=== PATIENT | male | born 1980 | race Caucasian/White ===

== ENCOUNTER 2020-05-02 02:25 | Emergency (ER) | payer BC ==
[~2020-05-02] VITALS: Ht 172.7 cm; Wt 93.1 kg
[2020-05-02 02:55] LABS: BASO # 0.1 x10^3/uL (0.0-0.2); BASO % 1 % (0-3); EOS # 0.1 x10^3/uL (0.0-0.7); EOS % 1 % (0-3); HEMATOCRIT 46.2 % (39.0-53.0); HEMOGLOBIN 15.5 g/dL (13.0-17.5); LYMPH # 2.4 x10^3/uL (1.0-4.8); LYMPH % 19 % (24-48); MEAN CORPUSCULAR HEMOGLOBIN 30 pg (25-35); MEAN CORPUSCULAR HGB CONC 34 g/dL (31-37); MEAN CORPUSCULAR VOLUME 89 fL (79-100); MONO % 8 % (0-9); NEUT # 9.2 x10^3uL (1.8-7.7); NEUT % 71 % (31-73); PLATELET COUNT 237 x10^3/uL (140-400); RED CELL DISTRIBUTION WIDTH 13.8 % (11.5-14.5); WHITE BLOOD COUNT 12.9 x10^3/uL (4.0-11.0)
[2020-05-02] MEDS ORDERED: ONDANSETRON PF 4 MG/2 ML VIAL. IVP ONE (03:00)
[2020-05-02] MEDS ORDERED: MORPHINE SULFATE 4 MG/ML DISP.SYRIN. IV ONE (03:00)
[2020-05-02 03:02] LABS: BACTERIA,URINE 0 /HPF (0-FEW); BILIRUBIN,URINE NEG (NEG); CLARITY,URINE CLEAR; COLOR,URINE YELLOW; GLUCOSE,URINE NEG (NEG); NITRITE,URINE NEG (NEG); RBC,URINE 0 /HPF (0-2); SQUAMOUS EPITHELIAL CELL,UR OCC /LPF; UROBILINOGEN,URINE 0.2 mg/dL (0.2 mg/dL); WBC,URINE OCC /HPF (0-4)
--- NOTE | 2020-05-02 03:02 | PHYS DOC ---
Past History Past Medical History: Kidney Stones Past Surgical History: No Surgical History Additional Smoking Information: vape Alcohol Use: Rarely General Adult EDM: Chief Complaint: ABDOMINAL PAIN HPI: HPI: 39-year-old male who awoken from his sleep around midnight with right lower quadrant abdominal pain. The patient was feeling fine most the day yesterday. When he went to bed he had no medication he was sick. The pain is deep and cramping. It is moderate in intensity. Patient had 2 normal bowel movements yesterday. He has not had any nausea or vomiting. Denies fever or chills. He does have history of kidney stones but states this only hurts in the front and so it feels different. No history of abdominal surgery. Review of Systems: Review of Systems: Constitutional: Denies fever or chills Eyes: Denies change in visual acuity HENT: Denies nasal congestion or sore throat Respiratory: Denies cough or shortness of breath Cardiovascular: Denies chest pain or edema GI: Right lower quadrant abdominal pain. denies nausea, vomiting, bloody stools or diarrhea : Denies dysuria Musculoskeletal: Denies back pain or joint pain Integument: Denies rash Neurologic: Denies headache, focal weakness or sensory changes Endocrine: Denies polyuria or polydipsia Lymphatic: Denies swollen glands Psychiatric: Denies depression or anxiety Heart Score: Risk Factors: Risk Factors: DM, Current or recent (<one month) smoker, HTN, HLP, family history of CAD, obesity. Risk Scores: Score 0 - 3: 2.5% MACE over next 6 weeks - Discharge Home Score 4 - 6: 20.3% MACE over next 6 weeks - Admit for Clinical Observation Score 7 - 10: 72.7% MACE over next 6 weeks - Early Invasive Strategies Allergies: Allergies: Allergies Coded Allergies Type Severity Reaction Last Updated Verified No Known Drug Allergies 05/02/20 No Physical Exam: PE: Constitutional: Well developed, well nourished, obese, no acute distress, non- toxic appearance. [] HENT: Normocephalic, atraumatic, bilateral external ears normal, oropharynx moist, no oral exudates, nose normal. [] Eyes: PERRLA, EOMI, conjunctiva normal, no discharge. [] Neck: Normal range of motion, no tenderness, supple, no stridor. [] Cardiovascular:Heart rate regular rhythm, no murmur [] Lungs & Thorax: Bilateral breath sounds clear to auscultation [] Abdomen: Bowel sounds normal, soft, RLQ tenderness with guarding, no masses, no pulsatile masses. [] Skin: Warm, dry, no erythema, no rash. [] Back: No tenderness, no CVA tenderness. [] Extremities: No tenderness, no cyanosis, no clubbing, ROM intact, no edema. [] Neurologic: Alert and oriented X 3, normal motor function, normal sensory function, no focal deficits noted. [] Psychologic: Affect normal, judgement normal, mood normal. [] Current Patient Data: Labs: Laboratory Tests Test 05/02/20 02:40 White Blood Count 12.9 x10^3/uL (4.0-11.0) H Red Blood Count 5.20 x10^6/uL (4.30-5.70) Hemoglobin 15.5 g/dL (13.0-17.5) Hematocrit 46.2 % (39.0-53.0) Mean Corpuscular Volume 89 fL (79-100) Mean Corpuscular Hemoglobin 30 pg (25-35) Mean Corpuscular Hemoglobin Concent 34 g/dL (31-37) Red Cell Distribution Width 13.8 % (11.5-14.5) Platelet Count 237 x10^3/uL (140-400) Neutrophils (%) (Auto) 71 % (31-73) Lymphocytes (%) (Auto) 19 % (24-48) L Monocytes (%) (Auto) 8 % (0-9) Eosinophils (%) (Auto) 1 % (0-3) Basophils (%) (Auto) 1 % (0-3) Neutrophils # (Auto) 9.2 x10^3uL (1.8-7.7) H Lymphocytes # (Auto) 2.4 x10^3/uL (1.0-4.8) Monocytes # (Auto) 1.0 x10^3/uL (0.0-1.1) Eosinophils # (Auto) 0.1 x10^3/uL (0.0-0.7) Basophils # (Auto) 0.1 x10^3/uL (0.0-0.2) Vital Signs: Vital Signs Date Time Temp Pulse Resp B/P (MAP) Pulse Ox O2 Delivery O2 Flow Rate FiO2 05/02/20 02:25 98.0 85 18 158/119 (132) 98 Room Air EKG: EKG: [] Radiology/Procedures: Radiology/Procedures: [] Impressions: INDICATION: Reason: OMNI 300,75ML IV.RLQ abdominal pain.No sx or injury / Spl. Instructions: / History: COMPARISON: None. TECHNIQUE: Axial CT images obtained through the abdomen and pelvis with contrast. One or more of the following individualized dose reduction techniques were utilized for this examination: 1. Automated exposure control; 2. Adjustment of the mA and/or kV according to patient size; 3. Use of iterative reconstruction technique. FINDINGS: Abdominal aorta is not aneurysmal. No intrahepatic bile duct dilation. The liver is low density which can be seen with fatty infiltration. No peripancreatic fluid collection. Spleen unremarkable. Nonobstructive right renal stone without hydronephrosis. Urinary bladder is partially distended. Wall of the urinary bladder is mildly prominent but the latter is not very distended. The appendix measures approximately 8 mm with adjacent inflammatory changes and mucosal hyperenhancement. There is a couple of mildly prominent small bowel loops in a nonspecific pattern. Degenerative changes the spine. Mild scoliotic curvature the spine. IMPRESSION: * The appendix is mildly dilated with adjacent edema to the fat concerning for acute appendicitis. * Nonobstructive right renal stone. * The urinary bladder wall is mildly prominent but not very distended therefore portion of this could be secondary to lack of distention Electronically signed by: Apollo Bennett MD (05/02/2020 4:13 AM) [id number] DICTATED AND SIGNED BY: APOLLO BENNETT MD DATE: 05/02/20 0413 CC: JOEL MEDEROS DO; PCP,UNKNOWN ~ Course & Med Decision Making: Course & Med Decision Making Pertinent Labs and Imaging studies reviewed. (See chart for details) The patient has elevated white count. His CT of the abdomen and pelvis shows acute appendicitis. See official read for more details. I have given the patient 4 mg of morphine and 1 mg of Dilaudid for his pain. He is also given Zofran and a liter fluid. I will keep the patient n.p.o. I spoke with the general surgeon, Dr. Cruz and he has advised transfer to [facility] for surgery. I will give the patient Zosyn prior to transfer. I spoke with Dr. Gongora, the hospitalist and he has accepted the patient for transfer and admission. The patient is in agreement with this plan. He will go by ambulance. [] Dragon Disclaimer: Dragon Disclaimer: This electronic medical record was generated, in whole or in part, using a voice recognition dictation system. Departure Departure: Impression: Primary Impression: Appendicitis Qualified Codes: K35.30 - Acute appendicitis with localized peritonitis, without perforation or gangrene Disposition: XFER SHT-TRM HOSP Condition: STABLE Justification of Admission: Justification of Admission: Justification of Admission Dx: N/A JOEL MEDEROS DO May 02, 2020 03:02
[2020-05-02 03:05] LABS: CALCIUM 8.9 mg/dL (8.5-10.1); CREATININE 1.4 mg/dL (0.7-1.3); GFR 56.4; POTASSIUM 3.9 mmol/L (3.5-5.1)
[2020-05-02 03:10] LABS: ALBUMIN/GLOBULIN RATIO 1.1 (1.0-1.7); TOTAL BILIRUBIN 0.4 mg/dL (0.2-1.0); TOTAL PROTEIN 7.7 g/dL (6.4-8.2)
[2020-05-02] MEDS ORDERED: CONTRAST GIVEN. MC PRN (03:15)
[2020-05-02] MEDS ORDERED: IOHEXOL 300 MG/ML 75 ML VIAL. IV ONE (03:15)
[2020-05-02] MEDS ORDERED: HYDROmorphone PF 1 MG/ML DISP.SYRIN IVP ONE ×2 (03:30→05:00)
--- NOTE | 2020-05-02 04:16 | RAD ---
INDICATION: Reason: OMNI 300,75ML IV.RLQ abdominal pain.No sx or injury / Spl. Instructions: / History: COMPARISON: None. TECHNIQUE: Axial CT images obtained through the abdomen and pelvis with contrast. One or more of the following individualized dose reduction techniques were utilized for this examination: 1. Automated exposure control; 2. Adjustment of the mA and/or kV according to patient size; 3. Use of iterative reconstruction technique. FINDINGS: Abdominal aorta is not aneurysmal. No intrahepatic bile duct dilation. The liver is low density which can be seen with fatty infiltration. No peripancreatic fluid collection. Spleen unremarkable. Nonobstructive right renal stone without hydronephrosis. Urinary bladder is partially distended. Wall of the urinary bladder is mildly prominent but the latter is not very distended. The appendix measures approximately 8 mm with adjacent inflammatory changes and mucosal hyperenhancement. There is a couple of mildly prominent small bowel loops in a nonspecific pattern. Degenerative changes the spine. Mild scoliotic curvature the spine. IMPRESSION: * The appendix is mildly dilated with adjacent edema to the fat concerning for acute appendicitis. * Nonobstructive right renal stone. * The urinary bladder wall is mildly prominent but not very distended therefore portion of this could be secondary to lack of distention Electronically signed by: David Ortega MD (05/02/2020 4:13 AM) [id number]
[2020-05-02] MEDS ORDERED: PIPERACILLIN/TAZOBACTAM 3.375 GM in IV NORMAL SALINE 50ML 50 ML IV ONE (05:00)
[2020-05-02] MEDS ORDERED: PIPERACILLIN/TAZOBACTAM 3.375 GM VIAL IV ONE (05:03)
[2020-05-02] MEDS ORDERED: IV NORMAL SALINE 50ML 50 ML ONE (05:03)
[2020-05-02 06:29] VITALS: BP 166/94
== END 2020-05-02 07:45 | disposition short-term general hospital (02) ==
LOC: ER 02:25
DX: K35.30 Acute appendicitis with localized peritonitis, without perforation or gangrene (principal); Z20.828 Contact with and (suspected) exposure to other viral communicable diseases; Z87.442 Personal history of urinary calculi
CPT/HCPCS: 36415; 74177; 80053; 81001; 85025; 87426; 96365; 96375; 96376; 99285; J1170; J2270; J2405; J2543; Q9967; U0003

== ENCOUNTER 2021-08-13 05:14 | Emergency (ER) | payer BC ==
[~2021-08-13] VITALS: Ht 172.7 cm; Wt 94.5 kg
--- NOTE | 2021-08-13 05:16 | PHYS DOC ---
Past History Past Medical History: Kidney Stones Past Surgical History: No Surgical History Alcohol Use: Rarely General Adult HPI: HPI: ". I am having a kidney stone.. I ve had two before.. but none that hurt this bad... " Patient is a 41 year old male who presents with above hx and complaints of right flank and lower right abdomen pain. Patient relates pain to be similar to previous renal colic with passage of kidney stones. Patient has had appendectomy on a previous ED visit. Patient denies any trauma. No recent travel. No sick ill contacts. No history immunosuppression. Has had nausea and vomiting with the severe pain. Review of Systems: Review of Systems: Constitutional: Denies fever or chills Eyes: Denies change in visual acuity HENT: Denies nasal congestion or sore throat Respiratory: Denies cough or shortness of breath Cardiovascular: Denies chest pain or edema GI: Complains of right flank and abdominal pain, nausea, vomiting,. Denies bloody stools or diarrhea : Denies dysuria Musculoskeletal: Complains of right flank back pain Integument: Denies rash Neurologic: Denies headache, focal weakness or sensory changes Endocrine: Denies polyuria or polydipsia Lymphatic: Denies swollen glands Psychiatric: Denies depression or anxiety Family History: Family History: Noncontributory to presentation. Current Medications: Current Meds: See nursing for home meds Allergies: Allergies: Allergies Coded Allergies Type Severity Reaction Last Updated Verified No Known Drug Allergies 05/02/20 No Physical Exam: PE: Constitutional: Well developed, well nourished, in acute distress, non-toxic appearance. [] HENT: Normocephalic, atraumatic, bilateral external ears normal, oropharynx moist, no oral exudates, nose normal. [] Eyes: PERRLA, EOMI, conjunctiva normal, no discharge. [] Neck: Normal range of motion, no tenderness, supple, no stridor. [] Cardiovascular:Heart rate regular rhythm, no murmur [] Lungs & Thorax: Bilateral breath sounds equal at apex on auscultation [] Abdomen: Bowel sounds decreased, soft, right lower abdomen tenderness, no masses, no pulsatile masses. Circumcised male with testicles descended. Actively vomiting Skin: Warm, diaphoretic, no erythema, no rash. [] Back: No tenderness, right CVA tenderness. [] Extremities: No tenderness, no cyanosis, no clubbing, ROM intact, no edema. [] Neurologic: Alert and oriented X 3, normal motor function, normal sensory function, no focal deficits noted. [] Psychologic: Affect normal, judgement normal, mood normal. [] EKG: EKG: [] Radiology/Procedures: Radiology/Procedures: [][address] [address] IMAGING REPORT Signed PATIENT: FARIDA WARNER ACCOUNT: [id number] : 1980 LOCATION: ER AGE: 41 SEX: M EXAM STATUS: REG ER ORD. PHYSICIAN: CARMENZA ROBLERO MD REASON: Severe right sided abdomen and flank pain, n/v. Hx: Kidney stone PROCEDURE: CT ABDOMEN PELVIS WO CONTRAST CT ABDOMEN+PELVIS WO INDICATION: Severe right sided abdomen and flank pain, n/v. Hx: Kidney stone EXAM: Noncontrast CT of the abdomen and pelvis. Coronal and sagittal reformatted images were performed. PQRS compliance statement: One or more of the following individualized dose reduction techniques were utilized for this examination: 1. Automated exposure control 2. Adjustment of the mA and/or kV according to patient size 3. Use of iterative reconstruction technique COMPARISON: 05/02/2020 FINDINGS: No free air, free fluid, or fluid collection. Lower chest: The visualized lower lungs are aerated. No pleural or pericardial effusion. ABDOMEN: Liver: The noncontrast liver is homogeneous in attenuation. Gallbladder and biliary: Normal gallbladder without radiopaque stone. Normal caliber bile ducts. Spleen: Normal spleen. Pancreas: The noncontrast pancreas is homogeneous in attenuation without peripancreatic inflammatory changes. Adrenal glands: Normal adrenal glands. Kidneys and ureters: Moderate right hydroureteronephrosis with a 7 x 5 mm calculus at the ureterovesicular junction. Additional nonobstructive punctate bilateral renal calculi. GI tract: The stomach is decompressed and poorly evaluated. Normal caliber small bowel and colon. Appendectomy. Vascular structures: Normal caliber abdominal aorta. Lymph nodes: No lymphadenopathy in the abdomen or pelvis. PELVIS: Genitourinary system: Urinary bladder is decompressed. SKELETAL STRUCTURES AND SOFT TISSUES: No fracture or destructive lesion in the visualized skeleton. IMPRESSION: 1. Moderate right hydroureteronephrosis with a 7 x 5 mm calculus at the u reterovesicular junction. 2. Additional nonobstructive punctate bilateral renal calculi. Electronically signed by: Tran Salcedo MD (08/13/2021 5:51 AM) [facility] DICTATED AND SIGNED BY: TRAN SALCEDO MD DATE: 08/13/21 05 CC: CARMENZA ROBLERO MD; PCP,UNKNOWN ~MTH0 0 Heart Score: C/O Chest Pain: N/A Risk Factors: Risk Factors: DM, Current or recent (<one month) smoker, HTN, HLP, family history of CAD, obesity. Risk Scores: Score 0 - 3: 2.5% MACE over next 6 weeks - Discharge Home Score 4 - 6: 20.3% MACE over next 6 weeks - Admit for Clinical Observation Score 7 - 10: 72.7% MACE over next 6 weeks - Early Invasive Strategies Course & Med Decision Making: Course & Med Decision Making Pertinent Labs and Imaging studies reviewed. (See chart for details) Patient save stone that are passed in urine.. Push clear fluids. Take Tylenol and ibuprofen for pain. Take Flomax daily until stone is passed. Take Zofran 8 mg up to 4 times a day for nausea and vomiting. For marked pain may take Vicoprofen. Follow-up primary care. Follow-up with urology. If you do not have a urologist [facility] [phone] Impression: 1. Renal Colic 2. 7,5 UVC Rt. Kidney stone. [] Ayden Disclaimer: Ayden Disclaimer: This electronic medical record was generated, in whole or in part, using a voice recognition dictation system. Departure Departure: Referrals: PCP,UNKNOWN (PCP) Scripts Ondansetron Hcl (ZOFRAN) 4 Mg Tablet 8 MG PO QIDPRN PRN for NAUSEA/VOMITING, #30 TAB Prov: CARMENZA ROBLERO MD 08/13/21 Tamsulosin Hcl (FLOMAX) 0.4 Mg Cap.er.24h 0.4 MG PO DAILY for kidney stone, #30 CAP.SR Prov: CARMENZA ROBLERO MD 08/13/21 Hydrocodone/Ibuprofen (HYDROCODONE-IBUPROFEN 7.5-200 ) 1 Each Tablet 1 TAB PO PRN Q6HRS PRN for PAIN, #30 TAB 0 Refills Prov: CARMENZA ROBLERO MD 08/13/21 Ayden Disclaimer This chart was dictated in whole or in part using Voice Recognition software in a busy, high-work load, and often noisy Emergency Department environment. It may contain unintended and wholly unrecognized errors or omissions. CARMENZA ROBLERO MD Aug 13, 2021 05:16
[2021-08-13 05:20] VITALS: BP 159/109
[2021-08-13] MEDS ORDERED: FAMOTIDINE 20 MG/2 ML VIAL IVP ONE (05:30)
[2021-08-13] MEDS ORDERED: KETOROLAC 30 MG/ML VIAL. IVP ONE (05:30)
[2021-08-13] MEDS ORDERED: ONDANSETRON PF 4 MG/2 ML VIAL. IVP ONE (05:30)
[2021-08-13] MEDS ORDERED: IV RINGERS SOLUTION,LACTATED 1,000 ML IV SCH (05:30)
[2021-08-13] MEDS ORDERED: TAMSULOSIN 0.4 MG CAP.ER.24H. PO ONE (05:45)
--- NOTE | 2021-08-13 05:54 | RAD ---
CT ABDOMEN+PELVIS WO INDICATION: Severe right sided abdomen and flank pain, n/v. Hx: Kidney stone EXAM: Noncontrast CT of the abdomen and pelvis. Coronal and sagittal reformatted images were perform ed. PQRS compliance statement: One or more of the following individualized dose reduction techniques were utilized for this examinat ion: 1. Automated exposure control 2. Adjustment of the mA and/or kV according to patient size 3. Use of iterative reconstruction technique COMPARISON: 05/02/2020 FINDINGS: No free air, free fluid, or fluid collection. Lower chest: The visualized lower lungs are aerated. No pleural or pericardial effusion. ABDOMEN: Liver: The noncontrast liver is homogeneous in attenuation. Gallbladder and biliary: Normal gallbladder without radiopaque stone. Normal caliber bile ducts. Spleen: Normal spleen. Pancreas: The noncontrast pancreas is homogeneous in attenuation without peripancreatic inflammatory changes. Adrenal glands: Normal adrenal glands. Kidneys and ureters: Moderate right hydroureteronephrosis with a 7 x 5 mm calculus at the ureterovesi cular junction. Additional nonobstructive punctate bilateral renal calculi. GI tract: The stomach is decompressed and poorly evaluated. Normal caliber small bowel and colon. Lo endectomy. Vascular structures: Normal caliber abdominal aorta. Lymph nodes: No lymphadenopathy in the abdomen or pelvis. PELVIS: Genitourinary system: Urinary bladder is decompressed. SKELETAL STRUCTURES AND SOFT TISSUES: No fracture or destructive lesion in the visualized skeleton. IMPRESSION: 1. Moderate right hydroureteronephrosis with a 7 x 5 mm calculus at the ureterovesicular junction. 2. Additional nonobstructive punctate bilateral renal calculi. Electronically signed by: Harjit Montalvo MD (08/13/2021 5:51 AM) [facility]
--- NOTE | 2021-08-13 05:55 | RAD ---
XR ABDOMEN COMP ACUTE INDICATION: Severe right sided abdomen and flank pain, n/v. Hx: Kidney stone COMPARISON STUDY: Concurrent CT abdomen pelvis. FINDINGS: Lungs: Normal lung volume. No pulmonary mass or consolidation. The tracheobronchial tree and hilar st ructures are normal. Pleura: No pleural effusion or pneumothorax. Heart and Mediastinum: The cardiomediastinal silhouette is normal. The great vessels of the thorax ar e normal. Abdomen: Nonobstructive bowel gas pattern. No free air. 7 mm calcification overlying the pelvis corre sponding to the right ureterovesicular junction ureteral calculus seen on the concurrent CT. IMPRESSION: 7 mm calcification overlying the pelvis corresponding to the right ureterovesicular junction calculus seen on the concurrent CT. Nonobstructive bowel gas pattern. No focal airspace disease Electronically signed by: Harjit Montalvo MD (08/13/2021 5:53 AM) [facility]
[2021-08-13] MEDS ORDERED: MORPHINE SULFATE 10 MG/ML SYRINGE. SQ ONE (06:00)
[2021-08-13] MEDS ORDERED: TAMS0.4C97 PO (06:23)
[2021-08-13] MEDS ORDERED: HYDR-1179 PO (06:23)
[2021-08-13] MEDS ORDERED: ONDA4TAB7 PO (06:23)
[2021-08-13 06:26] LABS: BASO # 0.1 x10^3/uL (0.0-0.2); BASO % 1 % (0-3); EOS % 0 % (0-3); HEMATOCRIT 44.2 % (39.0-53.0); HEMOGLOBIN 14.7 g/dL (13.0-17.5); LYMPH # 1.4 x10^3/uL (1.0-4.8); LYMPH % 11 % (24-48); MEAN CORPUSCULAR HEMOGLOBIN 30 pg (25-35); MEAN CORPUSCULAR HGB CONC 33 g/dL (31-37); MEAN CORPUSCULAR VOLUME 89 fL (79-100); MONO # 0.7 x10^3/uL (0.0-1.1); MONO % 5 % (0-9); NEUT # 10.9 x10^3uL (1.8-7.7); NEUT % 83 % (31-73); PLATELET COUNT 223 x10^3/uL (140-400); RED BLOOD COUNT 4.99 x10^6/uL (4.30-5.70); RED CELL DISTRIBUTION WIDTH 13.5 % (11.5-14.5); WHITE BLOOD COUNT 13.1 x10^3/uL (4.0-11.0)
[2021-08-13 06:31] LABS: BARBITURATES NEG (NEG); BENZODIAZEPINES NEG (NEG); CANNABINOIDS NEG (NEG); COCAINE NEG (NEG); METHADONE NEG (NEG); OPIATES NEG (NEG); PHENCYCLIDINE NEG (NEG)
[2021-08-13 06:35] LABS: AMPHETAMINE/METHAMPHETAMINE NEG (NEG)
[2021-08-13 06:37] LABS: CALCIUM 9.3 mg/dL (8.5-10.1); CREATININE 1.2 mg/dL (0.7-1.3); GFR 66.7; POTASSIUM 4.3 mmol/L (3.5-5.1)
[2021-08-13 06:39] LABS: BILIRUBIN,URINE NEG (NEG); CLARITY,URINE CLEAR; COLOR,URINE YELLOW; GLUCOSE,URINE NEG (NEG)
[2021-08-13 06:40] LABS: BACTERIA,URINE 0 /HPF (0-FEW); HYALINE CASTS, URINE OCC /HPF; NITRITE,URINE NEG (NEG); SQUAMOUS EPITHELIAL CELL,UR FEW /LPF; UROBILINOGEN,URINE 0.2 mg/dL (0.2 mg/dL)
[2021-08-13 06:42] LABS: ALBUMIN 4.4 g/dL (3.4-5.0); DIRECT BILIRUBIN 0.1 mg/dL (0.0-0.2); TOTAL BILIRUBIN 0.3 mg/dL (0.2-1.0); TOTAL PROTEIN 7.4 g/dL (6.4-8.2)
[2021-08-13] MEDS ORDERED: HYDROmorphone PF 1 MG/ML DISP.SYRIN IVP ONE (07:00)
== END 2021-08-13 07:09 | disposition home or self-care (01) ==
LOC: ER 05:14
DX: N13.2 Hydronephrosis with renal and ureteral calculous obstruction (principal); R11.2 Nausea with vomiting, unspecified
CPT/HCPCS: 36415; 74022; 74176; 80048; 80076; 80307; 81001; 83690; 84484; 85025; 96361; 96372; 96374; 96375; 99285; J1170; J1885; J2270; J2405; J3490; J7120